=== PATIENT | male | born 1950 | race Caucasian/White ===

== ENCOUNTER 2016-07-24 12:06 | Inpatient (IN) | payer MEDICARE ==
[~2016-07-24] VITALS: Ht 172.7 cm; Wt 63.4 kg
[~2016-07-24 12:06] MED LIST: ACET325T9 PO; ACET500T68 PO; ALBU2.5V5 NEB; AMLO10TA2 PO; AMLO10TA4 PO; AMLO5TAB2 PO; ASPI81TA2 PO; BISA-42 PO; BISA5TAB4 PO; CALC-56 PO; CARV25TA2 PO; CEFAZOLIN 1GM IVPB FOR OMNI 50 ML IV PRN; CIPR250T30 PO; CLON1PAT2 TD; COLE1TAB2 PO; DEXA5DRO OD; DEXT15DR5 EACHEYE; DEXT4TAB PO; DICL2.5D OP; DOCU-27 PO; DULO30CA2 PO; DULO60CA6 PO; ENOX40DI3 SQ; FAMO20TA5 PO; FERR-26 PO; FERR325T3 PO; FOLI0.8T3 PO; FURO-68 PO; FURO20TA3 PO; GABA-586 PO; GABA600T2 PO; GABA800T2 PO; GLUC1KIT IM; HYDR-2869 PO; HYDR25TA PO; INSU100C SQ; INSU100C4 SQ; INSU100I13 SQ; INSU100I17 SQ; INSU100V31 SQ; INSU100V8 SQ; IPRA3AMP NEB; IV RINGERS,LACTATED 1000ML 1,000 ML IV SCH; LIDO700A4 TP; LIDOCAINE 1% 1 ML SYRINGE. ID PRN; LIPA1CAP12 PO; LIPA1CAP36 PO; LIPA1CAP4 PO; LISI-334 PO; LISI10TA2 PO; LMFO1TAB PO; MAGN400O4 PO; MELA3TAB PO; METO25TA4 PO; MIRT15TA3 PO; MIRT7.5T8 PO; MOXI3DRO2 RIGHTEYE; MULT-246 PO; ONDA4TAB12 PO; OXYC10TA PO; OXYC20TA34 PO; OXYC30TA64 PO; OXYC5CAP3 PO; PANT40TA5 PO; PIPE3.3710 IV; POLY15DR20 LEFTEYE; POLY15DR27 OS; POLY17PO5 PO; PRED5DRO6 RIGHTEYE; PROCHLORPERAZINE 10 MG/2 ML VIAL. IV PRN; QUET25TA5 PO; SENN-22 PO; SENN1TAB7 PO; SENN8.6T99 PO; SODI650T PO; TRAZ100T12 PO; TRAZ50TA15 PO; VIT1TABL71 PO; WARF10TA PO; WARF1TAB PO; WARF4TAB7 PO
[2016-07-24] MEDS ORDERED: HYDROMORPHONE 2 MG/ML VIAL. IV ONE (13:45)
[2016-07-24] MEDS ORDERED: HYDROMORPHONE 2 MG/ML VIAL. IV STA (15:22)
[2016-07-24] MEDS ORDERED: PROPOFOL 20 ML IV ONE ×2 (16:18→18:35)
[2016-07-24] MEDS ORDERED: ONDANSETRON PF 4 MG/2 ML VIAL. ONE ×2 (16:18→18:35)
[2016-07-24] MEDS ORDERED: LIDOCAINE 2% 100 MG/5 ML DISP.SYRIN. ONE ×2 (16:18→18:35)
[2016-07-24] MEDS ORDERED: FAMOTIDINE 20 MG/2 ML VIAL ONE ×2 (16:18→18:35)
[2016-07-24] MEDS ORDERED: DEXAMETHASONE SOD PHOS 20 MG/5 ML VIAL. ONE ×2 (16:40→18:35)
[2016-07-24] MEDS ORDERED: MORPHINE SULFATE 10 MG/ML VIAL. ONE (16:45)
[2016-07-24] MEDS ORDERED: IV RINGERS,LACTATED 1000ML 1,000 ML IV SCH (18:08)
[2016-07-24] MEDS ORDERED: ONDANSETRON PF 4 MG/2 ML VIAL. IV PRN ×2 (18:15→19:15)
[2016-07-24] MEDS ORDERED: PROCHLORPERAZINE 10 MG/2 ML VIAL. IV PRN (18:15)
[2016-07-24] MEDS ORDERED: LIDOCAINE 1% 1 ML SYRINGE. ID PRN (18:15)
[2016-07-24] MEDS ORDERED: HYDROMORPHONE 2 MG/ML VIAL. IV PRN (18:15)
[2016-07-24] MEDS ORDERED: SEVOFLURANE > 120 MINUTES. IH ONE (18:35)
[2016-07-24] MEDS ORDERED: DEXTROSE 50% 25 GM / 50ML DISP.SYRIN. IV ONE (19:02)
--- NOTE | 2016-07-24 19:03 | PDOC ---
BRIEF OPERATIVE NOTE Date: Jul 24, 2016 Pre-Op Diagnosis painful ankle hardware and talar collapse Post-Op Diagnosis same Procedure Performed removal locking screw and repositioning left hindfoot fusion nail Surgeon Bob Anesthesia Type: General Blood Loss 100cc Findings above Complications none DELFINA AARON MD Jul 24, 2016 19:03
[2016-07-24] MEDS ORDERED: ALBUTEROL SULFATE 2.5 MG/3 ML NEBU. NEB PRN (19:15)
[2016-07-24] MEDS ORDERED: DEXTROSE 50% 25 GM / 50ML DISP.SYRIN. IV PRN (19:15)
[2016-07-24] MEDS ORDERED: ONDANSETRON ODT 4 MG TAB.RAPDIS PO PRN (19:15)
[2016-07-24] MEDS ORDERED: OXYCODONE IR 5 MG TABLET. PO PRN (19:15)
[2016-07-24] MEDS ORDERED: BISACODYL 5 MG TABLET.DR. PO PRN (19:15)
[2016-07-24] MEDS ORDERED: POLYETHYLENE GLYCOL 3350 17 GM PACKET. PO PRN (19:15)
[2016-07-24] MEDS ORDERED: IPRATRPIUM/ALBUTEROL 0.5/2.5MG 3 ML NEBU. NEB PRN (19:15)
[2016-07-24] MEDS ORDERED: OXYCODONE HCL PO PRN (19:15)
[2016-07-24] MEDS ORDERED: MORPHINE SULFATE 4 MG/ML DISP.SYRIN. IV PRN (19:15)
[2016-07-24] MEDS ORDERED: HYDROCODONE/APAP 7.5/325MG TABLET. PO PRN (19:15)
[2016-07-24] MEDS: MORPHINE SULFATE 2 MG/ML DISP.SYRIN. IV PRN ×4 (19:24→23:14)
[2016-07-24 20:00] VITALS: BP 140/77
[2016-07-24] MEDS ORDERED: traZODone 100 MG TABLET. PO SCH (21:00)
[2016-07-24] MEDS ORDERED: QUEtiapine 25 MG TABLET. PO SCH (21:00)
[2016-07-24] MEDS: DEXAMETHASONE 0.1% OPHTH SOLUTION 5ML BOTTLE. OD SCH (21:00)
[2016-07-24] MEDS ORDERED: MIRTAZAPINE 15 MG TABLET PO SCH (21:00)
--- NOTE | 2016-07-24 21:11 | OP ---
DATE OF SURGERY: 07/24/2016 PREOPERATIVE DIAGNOSES: 1. Painful hardware, left ankle. 2. Collapse of talus. POSTOPERATIVE DIAGNOSES: 1. Painful hardware, left ankle. 2. Collapse of the talus. 3. No evidence of infection. PROCEDURE: Removal of calcaneal locking screw, repositioning of hindfoot nail and relocking in a dynamized fashion. SURGEON: Richy Rojas M.D. ANESTHESIA: General, endotracheal. ESTIMATED BLOOD LOSS: 100 mL. COMPLICATIONS: None. OPERATIVE INDICATIONS: The patient is a 66-year-old male that had originally gone through a fixation of the medial portion of a bimalleolar ankle fracture, was given strict nonweightbearing orders and actually against directions bore weight on his ankle, had collapse of this ankle and required an ankle fusion, which was done previously with the hindfoot nail. He has had significant difficulties, but eventually healed relatively uneventfully later and has been having pain with weightbearing and due to talar collapse, has had some prominence of the nail distally in the hindfoot. I had gone over with him his severe risks of surgery due to multiple medical problems and difficulties healing. Nevertheless, since he cannot bear weight and this is really bothering him, we talked about the possibility of repositioning the nail superiorly and keeping it relocking it for additional support due to his poor healing capability and I am worried that he would potentially have collapse, otherwise. Nevertheless, he has significant surgical risk, he understands this, but is still limited, he would like to proceed, despite the risk. DESCRIPTION OF PROCEDURE: The patient was identified, procedure verified, the patient placed in the supine position on operating table. After adequate amounts of general endotracheal anesthesia were administered, left lower extremity was prepped and draped in standard sterile fashion. A timeout was performed, the patient and procedure identified and verified. Next, an incision was made over the previous incision over the heel to attempt to remove the calcaneal locking screw. Unfortunately, despite locating the screw and trying to back it out of the nail, it would not back out despite any measures. I did remove the proximal locking screws as planned to attempt to translate the nail superiorly with an incision over the heel to superiorly translate the nail and have control of it. The only way I was able to remove the calcaneal locking screw was to tap on the inserting device and removed the screw at the same time. Eventually in this way, the screw was removed gradually by ____ and removed the rest of the way. Nail was tapped up under fluoroscopic guidance and locked in a dynamized hole using the superior locking screw the nail being superior to that area and completely flushed with the bottom of the calcaneus not prominent. Thorough irrigation carried out with normal saline solution. Closure was accomplished with nylon suture. A very sterile bulky postoperative dressing was applied. The patient was returned to recovery room in stable condition, but did have significant hyperglycemia and was going to be kept overnight for medical surgical floor admission. RICHY ROJAS MD DR: JACKIE/charles JOB#: [id number] / [id number]
[2016-07-24] MEDS ORDERED: LIPASE/PROTEAS/AMYLAS 10/34/55 CAPSULE.DR. PO PRN (21:30)
[2016-07-24] MEDS: POLYVINYL ALCOHOL 1.4% OPHTH SOLUTION 15ML BOTTLE. OU SCH (21:30)
[2016-07-24] MEDS ORDERED: INSULIN DETEMIR 300 UNITS/3 ML INSULN.PEN. SQ SCH (21:30)
[2016-07-24 21:46] LABS: INR 1.2 (0.8-1.1); PROTHROMBIN TIME PATIENT 14.4 SEC (11.7-14.0)
[2016-07-24] MEDS: HYDRALAZINE 50 MG TABLET PO SCH (21:53)
[2016-07-24] MEDS: OXYCODONE ER 15 MG TAB.ER.12H. PO SCH (21:54)
[2016-07-24] MEDS: METOPROLOL TART IMMED RELEASE 25 MG TABLET PO SCH (21:54)
[2016-07-24] MEDS: CEFAZOLIN SODIUM 1 GM in IV NORMAL SALINE 50ML 50 ML IV SCH (22:05)
[2016-07-24] MEDS ORDERED: WARFARIN 5 MG TABLET. PO ONE (23:00)
[2016-07-24 23:21] VITALS: BP_SYST 140; BP_SYST 147; BP_DIAS 67; BP_DIAS 77
[2016-07-24] MEDS: HYDROCODONE/APAP 7.5/325MG TABLET. PO PRN (23:35)
[2016-07-25 02:12] LABS: BASO % 1 % (0-3); EOS % 0 % (0-3); HEMOGLOBIN 11.6 g/dL (13.0-17.5); LYMPH # 0.3 x10^3/uL (1.0-4.8); LYMPH % 4 % (24-48); MEAN CORPUSCULAR HEMOGLOBIN 29 pg (25-35); MEAN CORPUSCULAR HGB CONC 32 g/dL (31-37); MEAN CORPUSCULAR VOLUME 89 fL (79-100); MONO % 3 % (0-9); NEUT % 93 % (31-73); PLATELET COUNT 168 x10^3/uL (140-400); RED BLOOD COUNT 4.03 x10^6/uL (4.30-5.70); RED CELL DISTRIBUTION WIDTH 17.3 % (11.5-14.5); WHITE BLOOD COUNT 7.5 x10^3/uL (4.0-11.0)
[2016-07-25 02:22] LABS: CALCIUM 8.1 mg/dL (8.5-10.1); CREATININE 1.2 mg/dL (0.7-1.3); GFR 60.8; POTASSIUM 5.1 mmol/L (3.5-5.1)
[2016-07-25 02:31] LABS: INR 1.2 (0.8-1.1); PROTHROMBIN TIME PATIENT 14.9 SEC (11.7-14.0)
[2016-07-25] MEDS: HYDROMORPHONE 2 MG/ML VIAL. IVP PRN ×2 (03:38→06:38)
[2016-07-25 03:49] VITALS: BP 153/86
[2016-07-25] MEDS: CEFAZOLIN SODIUM 1 GM in IV NORMAL SALINE 50ML 50 ML IV SCH ×2 (04:34→08:55)
[2016-07-25] MEDS: DIPHENHYDRAMINE 50 MG/ML VIAL IVP PRN ×2 (04:34→10:41)
[2016-07-25] MEDS ORDERED: MAGNESIUM HYDROXIDE 2,400 MG/30 ML ORAL.SUSP. PO PRN (06:00)
[2016-07-25 06:57] LABS: PLT ESTIMATE ADEQUATE (ADEQUATE)
[2016-07-25 07:00] VITALS: BP 166/83
[2016-07-25] MEDS ORDERED: FERROUS SULFATE 325 MG TABLET PO SCH (08:00)
[2016-07-25] MEDS ORDERED: LIPASE/PROTEAS/AMYLAS 10/34/55 CAPSULE.DR. PO SCH (08:00)
[2016-07-25] MEDS ORDERED: INSULIN ASPART 300 UNITS/3 ML INSULN.PEN SQ SCH (08:00)
[2016-07-25] MEDS: OXYCODONE ER 15 MG TAB.ER.12H. PO SCH (08:53)
[2016-07-25] MEDS: DEXAMETHASONE 0.1% OPHTH SOLUTION 5ML BOTTLE. OD SCH (08:54)
[2016-07-25] MEDS: POLYVINYL ALCOHOL 1.4% OPHTH SOLUTION 15ML BOTTLE. OU SCH (08:54)
[2016-07-25] MEDS: METOPROLOL TART IMMED RELEASE 25 MG TABLET PO SCH (08:58)
[2016-07-25 08:59] VITALS: BP 141/83
[2016-07-25] MEDS: HYDRALAZINE 50 MG TABLET PO SCH (08:59)
[2016-07-25] MEDS ORDERED: AMLODIPINE BESYLATE 5 MG TABLET PO SCH (09:00)
[2016-07-25] MEDS ORDERED: COLESTIPOL HCL 1 GM TABLET PO SCH (09:00)
[2016-07-25] MEDS ORDERED: LIDOCAINE (700MG/PATCH) PATCH. TP SCH (09:00)
[2016-07-25] MEDS ORDERED: FOLIC/VIT B COMP W-C (RENAL) TABLET. PO SCH (09:00)
[2016-07-25] MEDS ORDERED: CALCIUM CARB/VIT D3 500/200 TABLET PO SCH (09:00)
[2016-07-25] MEDS ORDERED: DULOXETINE HCL 30 MG CAPSULE.DR. PO SCH (09:00)
[2016-07-25] MEDS ORDERED: FAMOTIDINE 20 MG TABLET. PO SCH (09:00)
[2016-07-25] MEDS ORDERED: SENNOSIDES/DOCUSATE 8.6/50MG TABLET. PO SCH (09:00)
[2016-07-25] MEDS: HYDROCODONE/APAP 7.5/325MG TABLET. PO PRN (09:03)
[2016-07-25 10:09] LABS: INR 1.3 (0.8-1.1)
[2016-07-25] MEDS ORDERED: ANTI-COAG MONITOR BY PHARMACY. MC PRN (16:00)
[2016-07-25] MEDS ORDERED: BISACODYL 10 MG SUPP.RECT PR PRN (16:00)
[2016-07-25] MEDS ORDERED: WARFARIN 10 MG TABLET. PO SCH (16:00)
[2016-07-25] MEDS ORDERED: WARFARIN 1 MG TABLET. PO SCH (16:00)
--- NOTE | 2016-07-25 20:50 | DS ---
DATE OF DISCHARGE: 07/25/2016 PRIMARY DIAGNOSIS: Painful hardware of left ankle. PROCEDURE: Includes some hardware removal, repositioning of the painful left ankle nail and ____. DISPOSITION MEDICATIONS: Include complete reproduction of his previous medications at [facility] which were filled out on his medication sheet and I think I have to sign the [facility] ____ they E-mailed. DISCHARGE INSTRUCTIONS: The instructions include nonweightbearing, removal of his dressing on Saturday with soft dressings applied to the left ankle and leg. Follow up with Dr. Rojas in 10-14 days. Report ____ significant redness, drainage, fever, chills and uncontrolled pain. No physical therapy necessarily required other than for transfers to keep weight off the extremity until his incisions heal adequately. BRIEF DESCRIPTION OF HOSPITAL COURSE: The patient underwent procedure to remove calcaneal locking screw and reposition his nail in place for additional protection of his ankle fusion, was admitted overnight for medical reasons, pain control, among others, but he also had a significant hypoglycemic episode in recovery room which is now stabilized. The patient is in stable condition and was transferred back to [facility] accordingly. DELFINA ROJAS MD DR: JACKIE/charles JOB#: [id number] / [id number]
[2016-07-30] MEDS ORDERED: CLONIDINE TTS-2 PATCH TD SCH (09:00)
== END 2016-07-25 10:50 | DRG 493 ==
LOC: SURG 12:06 → 4 NORTH 19:00
PROVIDERS: ADMIT Orthopaedic Surgery; ATTEND Orthopaedic Surgery
PROC: 0SSG04Z Reposition Left Ankle Joint with Internal Fixation Device, Open Approach (ICD-10-PCS; 2016-07-24)
PROC: 0SPG04Z Removal of Internal Fixation Device from Left Ankle Joint, Open Approach (ICD-10-PCS; principal; 2016-07-24 14:05)
DX: T84.84XA Pain due to internal orthopedic prosthetic devices, implants and grafts, initial encounter (principal); I13.0 Hypertensive heart and chronic kidney disease with heart failure and stage 1 through stage 4 chronic kidney disease, or unspecified chronic kidney disease; Y83.1 Surgical operation with implant of artificial internal device as the cause of abnormal reaction of the patient, or of later complication, without mention of misadventure at the time of the procedure; F41.9 Anxiety disorder, unspecified; N18.9 Chronic kidney disease, unspecified; E11.22 Type 2 diabetes mellitus with diabetic chronic kidney disease; F17.200 Nicotine dependence, unspecified, uncomplicated; I11.0 Hypertensive heart disease with heart failure; I50.9 Heart failure, unspecified; E78.5 Hyperlipidemia, unspecified; Z86.711 Personal history of pulmonary embolism; Z86.19 Personal history of other infectious and parasitic diseases; Z90.49 Acquired absence of other specified parts of digestive tract; Z79.899 Other long term (current) drug therapy; Z88.8 Allergy status to other drugs, medicaments and biological substances; Z88.6 Allergy status to analgesic agent
CPT/HCPCS: 36415; 76000; 80048; 82947; 85007; 85027; 85610; 87324; 87641; 94250; 94760; J0690; J1100; J1170; J1200; J1815; J2270; J2405; J2704; J7042; S0028

== ENCOUNTER 2017-07-22 17:31 | Inpatient (IN) | payer MEDICARE, OTHER ==
[2017-07-22 18:38] LABS: ADD MAN DIFF? NO
[2017-07-22 18:43] LABS: INFLUENZA A PATIENT NEGATIVE (NEGATIVE); INFLUENZA B PATIENT NEGATIVE (NEGATIVE); OBC FLU VALID
[2017-07-22 18:46] LABS: BASO # 0.1 x10^3/uL (0.0-0.2); BASO % 1 % (0-3); EOS # 0.1 x10^3/uL (0.0-0.7); EOS % 1 % (0-3); HEMATOCRIT 37.5 % (39.0-53.0); HEMOGLOBIN 12.5 g/dL (13.0-17.5); LYMPH # 0.6 x10^3/uL (1.0-4.8); LYMPH % 9 % (24-48); MEAN CORPUSCULAR HEMOGLOBIN 33 pg (25-35); MEAN CORPUSCULAR HGB CONC 33 g/dL (31-37); MEAN CORPUSCULAR VOLUME 98 fL (79-100); MONO # 0.6 x10^3/uL (0.0-1.1); MONO % 9 % (0-9); NEUT # 5.5 x10^3uL (1.8-7.7); NEUT % 80 % (31-73); PLATELET COUNT 155 x10^3/uL (140-400); RED BLOOD COUNT 3.82 x10^6/uL (4.30-5.70); RED CELL DISTRIBUTION WIDTH 14.9 % (11.5-14.5); WHITE BLOOD COUNT 6.8 x10^3/uL (4.0-11.0)
[2017-07-22 18:56] LABS: ANION GAP 7 (6-14); BLOOD UREA NITROGEN 22 mg/dL (8-26); BUN/CREATININE RATIO 20 (6-20); CALCIUM 7.8 mg/dL (8.5-10.1); CARBON DIOXIDE 25 mmol/L (21-32); CHLORIDE 106 mmol/L (98-107); CREATININE 1.1 mg/dL (0.7-1.3); GLUCOSE 210 mg/dL (70-99); POTASSIUM 4.1 mmol/L (3.5-5.1); SODIUM 138 mmol/L (136-145)
[2017-07-22 19:00] LABS: NT-PRO BNP 2044 pg/mL (0-124)
[2017-07-22 19:00] LABS: ALBUMIN 2.2 g/dL (3.4-5.0); ALBUMIN/GLOBULIN RATIO 0.5 (1.0-1.7); ALK PHOS 267 U/L (46-116); ALT (SGPT) 42 U/L (16-63); AST (SGOT) 53 U/L (15-37); LIPASE 24 U/L (73-393); TOTAL BILIRUBIN 0.4 mg/dL (0.2-1.0); TOTAL PROTEIN 6.4 g/dL (6.4-8.2)
[2017-07-22] MEDS: IOHEXOL 300 MG/ML 100ML VIAL. IV (19:15)
[2017-07-22] MEDS: CONTRAST GIVEN MC (20:48)
[2017-07-22] MEDS: ACETAMINOPHEN 500 MG TABLET PO (21:06)
[2017-07-22] MEDS: MORPHINE SULFATE 4 MG/ML DISP.SYRIN. IV ×2 (21:25→23:12)
[2017-07-22 21:34] LABS: BILIRUBIN,URINE NEGATIVE (NEG); CLARITY,URINE CLEAR; COLOR,URINE YELLOW; GLUCOSE,URINE 100 mg/dL (NEG); NITRITE,URINE NEGATIVE (NEG); PH,URINE 5.5; PROTEIN,URINE >=300 mg/dL (NEG-TRACE); UROBILINOGEN,URINE 0.2 mg/dL (0.2 mg/dL)
[2017-07-22 21:40] LABS: BACTERIA,URINE 0 /HPF (0-FEW); HYALINE CASTS, URINE FEW /HPF; RBC,URINE OCC /HPF (0-2); SQUAMOUS EPITHELIAL CELL,UR OCC /LPF
[2017-07-22] MEDS ORDERED: ONDANSETRON PF 4 MG/2 ML VIAL. IV (21:45)
[2017-07-22] MEDS ORDERED: NITROGLYCERIN SUBLINGUAL 0.4 MG BOTTLE OF 25. SL (21:45)
[2017-07-22] MEDS: FUROSEMIDE 100 MG/10 ML VIAL. IVP (22:14)
[2017-07-22] MEDS ORDERED: ACETAMINOPHEN 325 MG TABLET. PO (23:15)
[2017-07-22] MEDS ORDERED: fentaNYL PF VIAL 100 MCG/2 ML VIAL IV (23:15)
[2017-07-22] MEDS ORDERED: BISACODYL 5 MG TABLET.DR. PO (23:15)
[2017-07-22] MEDS ORDERED: IPRATRPIUM/ALBUTEROL 0.5/2.5MG 3 ML NEBU. NEB (23:15)
[2017-07-22] MEDS ORDERED: ALBUTEROL SULFATE 2.5 MG/3 ML NEBU. NEB (23:15)
[2017-07-22] MEDS ORDERED: LIPASE/PROTEAS/AMYLAS 10/34/55 CAPSULE.DR. PO (23:15)
[2017-07-22] MEDS ORDERED: POLYETHYLENE GLYCOL 3350 17 GM PACKET. PO (23:15)
[2017-07-22] MEDS: QUEtiapine 25 MG TABLET. PO (23:52)
[2017-07-22] MEDS: traZODone 100 MG TABLET. PO (23:52)
[2017-07-23 01:19] LABS: POC GLUCOSE 147 mg/dL (70-99)
[2017-07-23] MEDS: MORPHINE SULFATE 4 MG/ML DISP.SYRIN. IV ×4 (03:12→16:19)
[2017-07-23 04:44] LABS: ADD MAN DIFF? NO
[2017-07-23 04:50] LABS: BASO # 0.1 x10^3/uL (0.0-0.2); BASO % 1 % (0-3); EOS # 0.1 x10^3/uL (0.0-0.7); EOS % 2 % (0-3); HEMATOCRIT 35.1 % (39.0-53.0); HEMOGLOBIN 11.7 g/dL (13.0-17.5); LYMPH # 0.8 x10^3/uL (1.0-4.8); LYMPH % 14 % (24-48); MEAN CORPUSCULAR HEMOGLOBIN 33 pg (25-35); MEAN CORPUSCULAR HGB CONC 33 g/dL (31-37); MEAN CORPUSCULAR VOLUME 99 fL (79-100); MONO # 0.5 x10^3/uL (0.0-1.1); MONO % 9 % (0-9); NEUT # 4.3 x10^3uL (1.8-7.7); NEUT % 74 % (31-73); PLATELET COUNT 128 x10^3/uL (140-400); RED BLOOD COUNT 3.54 x10^6/uL (4.30-5.70); RED CELL DISTRIBUTION WIDTH 14.7 % (11.5-14.5); WHITE BLOOD COUNT 5.8 x10^3/uL (4.0-11.0)
[2017-07-23 05:00] LABS: INR 1.2 (0.8-1.1)
[2017-07-23 05:25] LABS: ANION GAP 5 (6-14); BLOOD UREA NITROGEN 20 mg/dL (8-26); CALCIUM 7.9 mg/dL (8.5-10.1); CARBON DIOXIDE 28 mmol/L (21-32); CHLORIDE 106 mmol/L (98-107); CHOLESTEROL 146 mg/dL (0-200); CREATININE 1.1 mg/dL (0.7-1.3); GLUCOSE 128 mg/dL (70-99); HDLC 18 mg/dL (40-60); LDLC 108 mg/dL (0-100); NON-HDL CHOLESTEROL 128 mg/dL (0-129); POTASSIUM 3.7 mmol/L (3.5-5.1); SODIUM 139 mmol/L (136-145); TRIGLYCERIDES 102 mg/dL (0-150); VLDLC 20 mg/dL (0-40)
[2017-07-23 05:26] LABS: TROPONINI < 0.017 ng/mL (0.000-0.055)
[2017-07-23 05:28] LABS: CHOLESTEROL/HDL RATIO 8.1
[2017-07-23] MEDS: INSULIN ASPART 300 UNITS/3 ML INSULN.PEN SQ ×3 (08:00→16:57)
[2017-07-23 08:01] LABS: POC GLUCOSE 53 mg/dL (70-99)
[2017-07-23 08:01] LABS: POC GLUCOSE 59 mg/dL (70-99)
[2017-07-23] MEDS: DEXTROSE 50% 25 GM / 50ML DISP.SYRIN. IV (08:01)
[2017-07-23] MEDS: LIPASE/PROTEAS/AMYLAS 10/34/55 CAPSULE.DR. PO ×3 (08:04→17:09)
[2017-07-23] MEDS: DULoxetine HCL 30 MG CAPSULE.DR PO (08:07)
[2017-07-23] MEDS: FOLIC/VIT B COMP W-C (RENAL) TABLET. PO (08:08)
[2017-07-23] MEDS: CALCIUM CARB/VIT D3 500/200 TABLET. PO (08:08)
[2017-07-23] MEDS: amLODIPine BESYLATE 5 MG TABLET PO (08:08)
[2017-07-23] MEDS: METOPROLOL TART IMMED RELEASE 25 MG TABLET. PO (08:08)
[2017-07-23] MEDS: FERROUS SULFATE 325 MG TABLET. PO (08:08)
[2017-07-23] MEDS: DEXAMETHASONE 0.1% OPHTH SOLUTION 5ML BOTTLE. OD ×4 (08:09→20:38)
[2017-07-23] MEDS: POLYVINYL ALCOHOL 1.4% OPHTH SOLUTION 15ML BOTTLE. OU ×4 (08:09→20:38)
[2017-07-23] MEDS: POLYETHYLENE GLYCOL 3350 17 GM PACKET. PO (08:09)
[2017-07-23] MEDS: LIDOCAINE (700MG/PATCH) PATCH. TP (08:10)
[2017-07-23] MEDS: oxyCODONE IR 5 MG TABLET PO ×2 (08:11→20:37)
[2017-07-23 08:17] LABS: POC GLUCOSE 159 mg/dL (70-99)
[2017-07-23 10:21] LABS: TROPONINI < 0.017 ng/mL (0.000-0.055)
[2017-07-23 11:18] LABS: POC GLUCOSE 149 mg/dL (70-99)
[2017-07-23] MEDS: LEVOTHYROXINE 100 MCG TABLET PO (14:29)
[2017-07-23] MEDS: oxyCODONE/APAP 5/325 1 TAB TABLET PO (14:30)
[2017-07-23] MEDS: ANTI-COAG MONITOR BY PHARMACY. MC (14:52)
[2017-07-23] MEDS ORDERED: WARFARIN 1 MG TABLET. PO (16:00)
[2017-07-23] MEDS: COLESTIPOL HCL 1 GM TABLET PO (16:19)
[2017-07-23 16:29] LABS: POC GLUCOSE 149 mg/dL (70-99)
[2017-07-23] MEDS: RIVAROXABAN 10 MG TABLET. PO (17:09)
[2017-07-23] MEDS: MIRTAZAPINE 15 MG TABLET PO (20:37)
[2017-07-23] MEDS: traZODone 100 MG TABLET. PO (20:37)
[2017-07-23] MEDS: METOPROLOL TART IMMED RELEASE 50 MG TABLET. PO (20:38)
[2017-07-23] MEDS: QUEtiapine 25 MG TABLET. PO (20:38)
[2017-07-23] MEDS: INSULIN DETEMIR 300 UNITS/3 ML INSULN.PEN. SQ ×2 (20:45)
[2017-07-23] MEDS ORDERED: MIRTAZAPINE 15 MG TABLET PO (21:00)
[2017-07-23 21:34] LABS: POC GLUCOSE 183 mg/dL (70-99)
[2017-07-23] MEDS: hydrALAZINE 20 MG/ML VIAL. IVP (22:55)
[2017-07-23] MEDS: MORPHINE SULFATE 2 MG/ML DISP.SYRIN. IV (22:56)
[2017-07-24] MEDS: oxyCODONE IR 5 MG TABLET PO (03:24)
[2017-07-24] MEDS: hydrALAZINE 20 MG/ML VIAL. IVP ×2 (03:29→07:19)
[2017-07-24] MEDS: DEXTROSE 50% 25 GM / 50ML DISP.SYRIN. IV (07:20)
[2017-07-24 07:32] LABS: POC GLUCOSE 54 mg/dL (70-99)
[2017-07-24] MEDS: INSULIN ASPART 300 UNITS/3 ML INSULN.PEN SQ ×3 (08:00→16:55)
[2017-07-24] MEDS: METOPROLOL TART IMMED RELEASE 50 MG TABLET. PO ×2 (08:08→20:47)
[2017-07-24] MEDS: FOLIC/VIT B COMP W-C (RENAL) TABLET. PO (08:08)
[2017-07-24] MEDS: LIDOCAINE (700MG/PATCH) PATCH. TP (08:08)
[2017-07-24] MEDS: FUROSEMIDE 40 MG TABLET. PO (08:09)
[2017-07-24] MEDS: LEVOTHYROXINE 100 MCG TABLET PO (08:09)
[2017-07-24] MEDS: POTASSIUM CHLORIDE 10 MEQ TABLET.ER. PO (08:09)
[2017-07-24] MEDS: DULoxetine HCL 30 MG CAPSULE.DR PO (08:09)
[2017-07-24] MEDS: FERROUS SULFATE 325 MG TABLET. PO (08:10)
[2017-07-24] MEDS: FAMOTIDINE 20 MG TABLET. PO (08:10)
[2017-07-24] MEDS: CALCIUM CARB/VIT D3 500/200 TABLET. PO (08:10)
[2017-07-24] MEDS: LIPASE/PROTEAS/AMYLAS 10/34/55 CAPSULE.DR. PO ×3 (08:15→16:43)
[2017-07-24] MEDS: POLYVINYL ALCOHOL 1.4% OPHTH SOLUTION 15ML BOTTLE. OU ×4 (08:15→21:35)
[2017-07-24] MEDS: DEXAMETHASONE 0.1% OPHTH SOLUTION 5ML BOTTLE. OD ×4 (08:15→21:35)
[2017-07-24 08:33] LABS: POC GLUCOSE 143 mg/dL (70-99)
[2017-07-24] MEDS: POLYETHYLENE GLYCOL 3350 17 GM PACKET. PO (09:00)
[2017-07-24 09:54] LABS: ANION GAP 7 (6-14); BLOOD UREA NITROGEN 19 mg/dL (8-26); CALCIUM 8.6 mg/dL (8.5-10.1); CARBON DIOXIDE 29 mmol/L (21-32); CHLORIDE 103 mmol/L (98-107); GFR 74.8; GLUCOSE 101 mg/dL (70-99); MAGNESIUM 1.7 mg/dL (1.8-2.4); SODIUM 139 mmol/L (136-145)
[2017-07-24 10:59] LABS: POC GLUCOSE 80 mg/dL (70-99)
[2017-07-24] MEDS: MORPHINE SULFATE 2 MG/ML DISP.SYRIN. IV ×5 (11:38→21:35)
[2017-07-24] MEDS: MAGNESIUM SULFATE 2GM 50 ML IV (11:41)
[2017-07-24] MEDS: PANTOPRAZOLE 40 MG TABLET.DR. PO (13:41)
[2017-07-24 16:23] LABS: POC GLUCOSE 202 mg/dL (70-99)
[2017-07-24] MEDS: RIVAROXABAN 10 MG TABLET. PO (16:43)
[2017-07-24] MEDS: COLESTIPOL HCL 1 GM TABLET PO (16:44)
[2017-07-24 20:39] LABS: POC GLUCOSE 167 mg/dL (70-99)
[2017-07-24] MEDS: MIRTAZAPINE 15 MG TABLET PO (20:46)
[2017-07-24] MEDS: QUEtiapine 25 MG TABLET. PO (20:47)
[2017-07-24] MEDS: traZODone 100 MG TABLET. PO (20:47)
[2017-07-24] MEDS: INSULIN DETEMIR 300 UNITS/3 ML INSULN.PEN. SQ (21:44)
[2017-07-25] MEDS: MORPHINE SULFATE 2 MG/ML DISP.SYRIN. IV ×6 (02:12→19:58)
[2017-07-25] MEDS: hydrALAZINE 20 MG/ML VIAL. IVP ×2 (03:48→11:05)
[2017-07-25 07:46] LABS: POC GLUCOSE 84 mg/dL (70-99)
[2017-07-25] MEDS: INSULIN ASPART 300 UNITS/3 ML INSULN.PEN SQ ×3 (08:00→16:34)
[2017-07-25] MEDS: LIDOCAINE (700MG/PATCH) PATCH. TP (08:20)
[2017-07-25] MEDS: DEXAMETHASONE 0.1% OPHTH SOLUTION 5ML BOTTLE. OD ×4 (08:21→19:54)
[2017-07-25] MEDS: LIPASE/PROTEAS/AMYLAS 10/34/55 CAPSULE.DR. PO ×3 (08:21→16:34)
[2017-07-25] MEDS: FOLIC/VIT B COMP W-C (RENAL) TABLET. PO (08:22)
[2017-07-25] MEDS: FUROSEMIDE 40 MG TABLET. PO (08:22)
[2017-07-25] MEDS: METOPROLOL TART IMMED RELEASE 50 MG TABLET. PO ×2 (08:22→19:55)
[2017-07-25] MEDS: PANTOPRAZOLE 40 MG TABLET.DR. PO (08:22)
[2017-07-25] MEDS: LEVOTHYROXINE 100 MCG TABLET PO (08:23)
[2017-07-25] MEDS: DULoxetine HCL 30 MG CAPSULE.DR PO (08:23)
[2017-07-25] MEDS: POTASSIUM CHLORIDE 10 MEQ TABLET.ER. PO (08:23)
[2017-07-25] MEDS: FERROUS SULFATE 325 MG TABLET. PO (08:23)
[2017-07-25] MEDS: CALCIUM CARB/VIT D3 500/200 TABLET. PO (08:23)
[2017-07-25] MEDS: POLYVINYL ALCOHOL 1.4% OPHTH SOLUTION 15ML BOTTLE. OU ×4 (08:24→21:00)
[2017-07-25] MEDS: POLYETHYLENE GLYCOL 3350 17 GM PACKET. PO (08:25)
[2017-07-25 11:25] LABS: POC GLUCOSE 49 mg/dL (70-99)
[2017-07-25] MEDS: DEXTROSE 50% 25 GM / 50ML DISP.SYRIN. IV (11:33)
[2017-07-25 16:28] LABS: POC GLUCOSE 99 mg/dL (70-99)
[2017-07-25] MEDS: COLESTIPOL HCL 1 GM TABLET PO (16:33)
[2017-07-25] MEDS: RIVAROXABAN 10 MG TABLET. PO (16:34)
[2017-07-25 19:18] LABS: PROTEIN 24 HR UR 1763 mg/24 hr (30-150); UR PROTEIN 235.1 mg/dL (Not Estab.)
[2017-07-25 21:04] LABS: POC GLUCOSE 113 mg/dL (70-99)
[2017-07-25] MEDS: traZODone 100 MG TABLET. PO (22:07)
[2017-07-25] MEDS: QUEtiapine 25 MG TABLET. PO (22:07)
[2017-07-25] MEDS: MIRTAZAPINE 15 MG TABLET PO (22:07)
[2017-07-25] MEDS: INSULIN DETEMIR 300 UNITS/3 ML INSULN.PEN. SQ (22:11)
[2017-07-26] MEDS: oxyCODONE/APAP 5/325 1 TAB TABLET PO ×2 (03:35→07:48)
[2017-07-26 07:37] LABS: POC GLUCOSE 47 mg/dL (70-99)
[2017-07-26] MEDS: DEXTROSE 50% 25 GM / 50ML DISP.SYRIN. IV (07:47)
[2017-07-26] MEDS: LIPASE/PROTEAS/AMYLAS 10/34/55 CAPSULE.DR. PO ×3 (07:47→17:00)
[2017-07-26] MEDS: LIDOCAINE (700MG/PATCH) PATCH. TP (07:48)
[2017-07-26] MEDS: FOLIC/VIT B COMP W-C (RENAL) TABLET. PO (07:48)
[2017-07-26] MEDS: POLYETHYLENE GLYCOL 3350 17 GM PACKET. PO (07:48)
[2017-07-26] MEDS: DULoxetine HCL 30 MG CAPSULE.DR PO (07:48)
[2017-07-26] MEDS: FUROSEMIDE 40 MG TABLET. PO (07:49)
[2017-07-26] MEDS: FERROUS SULFATE 325 MG TABLET. PO (07:49)
[2017-07-26] MEDS: CALCIUM CARB/VIT D3 500/200 TABLET. PO (07:49)
[2017-07-26] MEDS: PANTOPRAZOLE 40 MG TABLET.DR. PO (07:49)
[2017-07-26] MEDS: METOPROLOL TART IMMED RELEASE 50 MG TABLET. PO ×2 (07:49→20:38)
[2017-07-26] MEDS: LEVOTHYROXINE 100 MCG TABLET PO (07:49)
[2017-07-26] MEDS: POTASSIUM CHLORIDE 10 MEQ TABLET.ER. PO (07:49)
[2017-07-26] MEDS: INSULIN ASPART 300 UNITS/3 ML INSULN.PEN SQ ×3 (07:55→17:00)
[2017-07-26] MEDS ORDERED: LISINOPRIL 10 MG TABLET PO (09:30)
[2017-07-26] MEDS ORDERED: guaiFENesin ORAL 200 MG/10 ML LIQUID. PO (09:45)
[2017-07-26] MEDS ORDERED: LOSARTAN POTASSIUM 50 MG TABLET. PO (10:00)
[2017-07-26] MEDS: BRIMONIDINE 0.2% OPHTH SOLUTION 5ML BOTTLE. OU ×2 (10:00→20:48)
[2017-07-26 11:12] LABS: POC GLUCOSE 190 mg/dL (70-99)
[2017-07-26] MEDS: POLYVINYL ALCOHOL 1.4% OPHTH SOLUTION 15ML BOTTLE. OU ×4 (11:34→20:48)
[2017-07-26] MEDS: CHOLECALCIFEROL (VITAMIN D3) 5,000 UNIT CAPSULE PO (11:35)
[2017-07-26] MEDS: DEXAMETHASONE 0.1% OPHTH SOLUTION 5ML BOTTLE. OD ×4 (11:35→20:48)
[2017-07-26] MEDS: LACTOBACILLUS RHAMNOSUS GG 1 CAPSULE. PO ×2 (11:35→20:35)
[2017-07-26] MEDS: hydrALAZINE 20 MG/ML VIAL. IVP (11:35)
[2017-07-26] MEDS ORDERED: MAGNESIUM SULFATE 2GM 50 ML IV (12:15)
[2017-07-26] MEDS: MORPHINE SULFATE 2 MG/ML DISP.SYRIN. IV ×3 (12:40→20:45)
[2017-07-26] MEDS: SPIRONOLACTONE 25 MG TABLET PO ×2 (15:00→20:37)
[2017-07-26 16:54] LABS: POC GLUCOSE 146 mg/dL (70-99)
[2017-07-26] MEDS: COLESTIPOL HCL 1 GM TABLET PO (16:57)
[2017-07-26] MEDS: RIVAROXABAN 10 MG TABLET. PO (17:00)
[2017-07-26 18:16] LABS: % SAT IRON 63 % (15-34); IRON,SERUM 104 ug/dL (65-175)
[2017-07-26] MEDS: ANTI-COAG MONITOR BY PHARMACY. MC (18:28)
[2017-07-26 18:29] LABS: FERRITIN 281 ng/mL (26-388)
[2017-07-26] MEDS: traZODone 50 MG TABLET. PO (20:36)
[2017-07-26] MEDS: QUEtiapine 25 MG TABLET. PO (20:37)
[2017-07-26] MEDS: MIRTAZAPINE 15 MG TABLET PO (20:37)
[2017-07-26] MEDS: traZODone 100 MG TABLET. PO (20:49)
[2017-07-26 21:16] LABS: POC GLUCOSE 151 mg/dL (70-99)
[2017-07-27] MEDS: MORPHINE SULFATE 2 MG/ML DISP.SYRIN. IV ×4 (05:06→21:36)
[2017-07-27 06:15] LABS: CREAT CLEAR 24 56 mL/min (97-137); CREATININE UR 24HR 802 mg/24 hr (1000-2000); TOTAL URINE CREATININE 106.9 mg/dL (Not Estab.); eGFR AFRICAN-AMER 90 (>59); eGFR NON AFRICAN-AMER 78 (>59)
[2017-07-27 07:02] LABS: HEMOGLOBIN 11.4 g/dL (13.0-17.5)
[2017-07-27 07:20] LABS: ANION GAP 5 (6-14); BLOOD UREA NITROGEN 24 mg/dL (8-26); CALCIUM 8.1 mg/dL (8.5-10.1); CARBON DIOXIDE 29 mmol/L (21-32); CHLORIDE 99 mmol/L (98-107); CREATININE 1.4 mg/dL (0.7-1.3); GFR 50.7; GLUCOSE 217 mg/dL (70-99); PHOSPHORUS 3.3 mg/dL (2.6-4.7); POTASSIUM 4.6 mmol/L (3.5-5.1); SODIUM 133 mmol/L (136-145)
[2017-07-27 07:36] LABS: POC GLUCOSE 193 mg/dL (70-99)
[2017-07-27 07:38] LABS: MAGNESIUM 1.9 mg/dL (1.8-2.4)
[2017-07-27] MEDS: PANTOPRAZOLE 40 MG TABLET.DR. PO (08:52)
[2017-07-27] MEDS: LEVOTHYROXINE 100 MCG TABLET PO (08:53)
[2017-07-27] MEDS: LIPASE/PROTEAS/AMYLAS 10/34/55 CAPSULE.DR. PO ×3 (08:53→16:48)
[2017-07-27] MEDS: DEXAMETHASONE 0.1% OPHTH SOLUTION 5ML BOTTLE. OD ×4 (08:54→21:31)
[2017-07-27] MEDS: BRIMONIDINE 0.2% OPHTH SOLUTION 5ML BOTTLE. OU ×2 (08:55→21:31)
[2017-07-27] MEDS: SPIRONOLACTONE 25 MG TABLET PO ×2 (08:56→21:35)
[2017-07-27] MEDS: LOSARTAN POTASSIUM 50 MG TABLET. PO (08:57)
[2017-07-27] MEDS: DULoxetine HCL 30 MG CAPSULE.DR PO (08:58)
[2017-07-27] MEDS: LACTOBACILLUS RHAMNOSUS GG 1 CAPSULE. PO ×2 (08:58→21:34)
[2017-07-27] MEDS: FERROUS SULFATE 325 MG TABLET. PO (08:59)
[2017-07-27] MEDS: POLYVINYL ALCOHOL 1.4% OPHTH SOLUTION 15ML BOTTLE. OU ×4 (09:00→21:31)
[2017-07-27] MEDS ORDERED: LISINOPRIL 10 MG TABLET PO (09:00)
[2017-07-27] MEDS: POLYETHYLENE GLYCOL 3350 17 GM PACKET. PO ×2 (09:00→16:00)
[2017-07-27] MEDS: FUROSEMIDE 40 MG TABLET. PO (09:00)
[2017-07-27] MEDS: METOPROLOL TART IMMED RELEASE 50 MG TABLET. PO ×2 (09:01→21:35)
[2017-07-27] MEDS: CALCIUM CARB/VIT D3 500/200 TABLET. PO (09:01)
[2017-07-27] MEDS: FOLIC/VIT B COMP W-C (RENAL) TABLET. PO (09:01)
[2017-07-27] MEDS: cloNIDine TTS-3 1 PATCH PATCH.TDWK TD (09:02)
[2017-07-27] MEDS: CHOLECALCIFEROL (VITAMIN D3) 5,000 UNIT CAPSULE PO (09:02)
[2017-07-27] MEDS: LIDOCAINE (700MG/PATCH) PATCH. TP (09:03)
[2017-07-27] MEDS: INSULIN ASPART 300 UNITS/3 ML INSULN.PEN SQ ×3 (09:14→17:22)
[2017-07-27 11:32] LABS: POC GLUCOSE 176 mg/dL (70-99)
[2017-07-27] MEDS: oxyCODONE IR 5 MG TABLET PO ×2 (12:02→18:05)
[2017-07-27] MEDS: COLESTIPOL HCL 1 GM TABLET PO (16:44)
[2017-07-27] MEDS: PSYLLIUM HUSK (SUGAR FREE) 1 PKT PACKET PO (16:44)
[2017-07-27] MEDS: RIVAROXABAN 10 MG TABLET. PO (16:47)
[2017-07-27 17:23] LABS: POC GLUCOSE 161 mg/dL (70-99)
[2017-07-27 20:39] LABS: POC GLUCOSE 274 mg/dL (70-99)
[2017-07-27] MEDS: traZODone 50 MG TABLET. PO (21:33)
[2017-07-27] MEDS: QUEtiapine 25 MG TABLET. PO (21:34)
[2017-07-27] MEDS: MIRTAZAPINE 15 MG TABLET PO (21:35)
[2017-07-28] MEDS: oxyCODONE IR 5 MG TABLET PO ×2 (01:18→20:48)
[2017-07-28] MEDS: MORPHINE SULFATE 2 MG/ML DISP.SYRIN. IV ×7 (01:19→20:42)
[2017-07-28 06:41] LABS: ALBUMIN 1.9 g/dL (3.4-5.0); ANION GAP 7 (6-14); BLOOD UREA NITROGEN 33 mg/dL (8-26); CALCIUM 8.3 mg/dL (8.5-10.1); CARBON DIOXIDE 27 mmol/L (21-32); CHLORIDE 101 mmol/L (98-107); CREATININE 1.8 mg/dL (0.7-1.3); GFR 37.9; GLUCOSE 286 mg/dL (70-99); PHOSPHORUS 3.9 mg/dL (2.6-4.7); POTASSIUM 4.4 mmol/L (3.5-5.1); SODIUM 135 mmol/L (136-145)
[2017-07-28 06:43] LABS: MAGNESIUM 2.1 mg/dL (1.8-2.4)
[2017-07-28 07:29] LABS: POC GLUCOSE 206 mg/dL (70-99)
[2017-07-28] MEDS: CHOLECALCIFEROL (VITAMIN D3) 5,000 UNIT CAPSULE PO (08:38)
[2017-07-28] MEDS: LIPASE/PROTEAS/AMYLAS 10/34/55 CAPSULE.DR. PO ×3 (08:38→17:22)
[2017-07-28] MEDS: PANTOPRAZOLE 40 MG TABLET.DR. PO (08:39)
[2017-07-28] MEDS: FOLIC/VIT B COMP W-C (RENAL) TABLET. PO (08:39)
[2017-07-28] MEDS: LEVOTHYROXINE 100 MCG TABLET PO (08:39)
[2017-07-28] MEDS: LACTOBACILLUS RHAMNOSUS GG 1 CAPSULE. PO ×2 (08:39→20:45)
[2017-07-28] MEDS: CALCIUM CARB/VIT D3 500/200 TABLET. PO (08:39)
[2017-07-28] MEDS: DULoxetine HCL 30 MG CAPSULE.DR PO (08:39)
[2017-07-28] MEDS: SPIRONOLACTONE 25 MG TABLET PO ×2 (08:39→20:47)
[2017-07-28] MEDS: FERROUS SULFATE 325 MG TABLET. PO (08:39)
[2017-07-28] MEDS: BRIMONIDINE 0.2% OPHTH SOLUTION 5ML BOTTLE. OU ×2 (08:40→20:41)
[2017-07-28] MEDS: METOPROLOL TART IMMED RELEASE 50 MG TABLET. PO ×2 (08:40→20:47)
[2017-07-28] MEDS: POLYVINYL ALCOHOL 1.4% OPHTH SOLUTION 15ML BOTTLE. OU ×4 (08:40→20:41)
[2017-07-28] MEDS: DEXAMETHASONE 0.1% OPHTH SOLUTION 5ML BOTTLE. OD ×4 (08:40→20:41)
[2017-07-28] MEDS: PSYLLIUM HUSK (SUGAR FREE) 1 PKT PACKET PO (08:41)
[2017-07-28] MEDS: POLYETHYLENE GLYCOL 3350 17 GM PACKET. PO ×2 (08:41)
[2017-07-28] MEDS: INSULIN ASPART 300 UNITS/3 ML INSULN.PEN SQ ×3 (08:51→17:27)
[2017-07-28] MEDS: LIDOCAINE (700MG/PATCH) PATCH. TP (08:51)
[2017-07-28 11:04] LABS: POC GLUCOSE 157 mg/dL (70-99)
[2017-07-28] MEDS: COLESTIPOL HCL 1 GM TABLET PO (15:26)
[2017-07-28] MEDS: RIVAROXABAN 10 MG TABLET. PO (17:22)
[2017-07-28 19:26] LABS: POC GLUCOSE 216 mg/dL (70-99)
[2017-07-28] MEDS: MIRTAZAPINE 15 MG TABLET PO (20:45)
[2017-07-28] MEDS: traZODone 50 MG TABLET. PO (20:45)
[2017-07-28] MEDS: QUEtiapine 25 MG TABLET. PO (20:45)
[2017-07-28 21:28] LABS: POC GLUCOSE 249 mg/dL (70-99)
[2017-07-29 05:20] LABS: ANION GAP 9 (6-14); BLOOD UREA NITROGEN 34 mg/dL (8-26); CALCIUM 8.5 mg/dL (8.5-10.1); CARBON DIOXIDE 27 mmol/L (21-32); CHLORIDE 102 mmol/L (98-107); CREATININE 1.6 mg/dL (0.7-1.3); GFR 43.5; GLUCOSE 261 mg/dL (70-99); MAGNESIUM 2.1 mg/dL (1.8-2.4); PHOSPHORUS 3.4 mg/dL (2.6-4.7); POTASSIUM 4.6 mmol/L (3.5-5.1); SODIUM 138 mmol/L (136-145)
[2017-07-29 08:12] LABS: POC GLUCOSE 267 mg/dL (70-99)
[2017-07-29] MEDS: PSYLLIUM HUSK (SUGAR FREE) 1 PKT PACKET PO (08:32)
[2017-07-29] MEDS: LIPASE/PROTEAS/AMYLAS 10/34/55 CAPSULE.DR. PO ×3 (08:32→17:38)
[2017-07-29] MEDS: FERROUS SULFATE 325 MG TABLET. PO (08:33)
[2017-07-29] MEDS: FOLIC/VIT B COMP W-C (RENAL) TABLET. PO (08:33)
[2017-07-29] MEDS: oxyCODONE IR 5 MG TABLET PO ×2 (08:33→20:51)
[2017-07-29] MEDS: DULoxetine HCL 30 MG CAPSULE.DR PO (08:33)
[2017-07-29] MEDS: ONDANSETRON ODT 4 MG TAB.RAPDIS. PO (08:33)
[2017-07-29] MEDS: PANTOPRAZOLE 40 MG TABLET.DR. PO (08:34)
[2017-07-29] MEDS: CALCIUM CARB/VIT D3 500/200 TABLET. PO (08:34)
[2017-07-29] MEDS: LACTOBACILLUS RHAMNOSUS GG 1 CAPSULE. PO ×2 (08:34→20:55)
[2017-07-29] MEDS: LEVOTHYROXINE 100 MCG TABLET PO (08:34)
[2017-07-29] MEDS: METOPROLOL TART IMMED RELEASE 50 MG TABLET. PO ×2 (08:34→21:00)
[2017-07-29] MEDS: SPIRONOLACTONE 25 MG TABLET PO ×2 (08:34→20:55)
[2017-07-29] MEDS: MORPHINE SULFATE 2 MG/ML DISP.SYRIN. IV ×4 (08:35→20:52)
[2017-07-29] MEDS: BRIMONIDINE 0.2% OPHTH SOLUTION 5ML BOTTLE. OU ×3 (08:36→17:39)
[2017-07-29] MEDS: POLYVINYL ALCOHOL 1.4% OPHTH SOLUTION 15ML BOTTLE. OU ×4 (08:36→20:52)
[2017-07-29] MEDS: DEXAMETHASONE 0.1% OPHTH SOLUTION 5ML BOTTLE. OD ×4 (08:36→20:52)
[2017-07-29] MEDS: LIDOCAINE (700MG/PATCH) PATCH. TP (08:37)
[2017-07-29] MEDS: CHOLECALCIFEROL (VITAMIN D3) 5,000 UNIT CAPSULE PO (08:37)
[2017-07-29] MEDS: POLYETHYLENE GLYCOL 3350 17 GM PACKET. PO (08:43)
[2017-07-29] MEDS: INSULIN ASPART 300 UNITS/3 ML INSULN.PEN SQ ×3 (08:49→17:46)
[2017-07-29] MEDS ORDERED: cloNIDine TTS-2 1 PATCH PATCH TD (09:00)
[2017-07-29 11:28] LABS: POC GLUCOSE 237 mg/dL (70-99)
[2017-07-29] MEDS: IV NORMAL SALINE 1000ML BAG 1,000 ML IV ×2 (11:54→20:56)
[2017-07-29] MEDS: oxyCODONE/APAP 5/325 1 TAB TABLET PO ×2 (13:41→17:39)
[2017-07-29] MEDS: FUROSEMIDE 40 MG/4 ML VIAL. IVP (13:42)
[2017-07-29] MEDS: COLESTIPOL HCL 1 GM TABLET PO (15:48)
[2017-07-29 16:34] LABS: POC GLUCOSE 229 mg/dL (70-99)
[2017-07-29] MEDS: RIVAROXABAN 10 MG TABLET. PO (17:38)
[2017-07-29] MEDS: ANTI-COAG MONITOR BY PHARMACY. MC (18:07)
[2017-07-29 20:23] LABS: POC GLUCOSE 257 mg/dL (70-99)
[2017-07-29] MEDS: traZODone 50 MG TABLET. PO (20:55)
[2017-07-29] MEDS: MIRTAZAPINE 15 MG TABLET PO (20:55)
[2017-07-29] MEDS: QUEtiapine 25 MG TABLET. PO (20:55)
[2017-07-30] MEDS: oxyCODONE/APAP 5/325 1 TAB TABLET PO ×2 (02:19→08:22)
[2017-07-30] MEDS: MORPHINE SULFATE 2 MG/ML DISP.SYRIN. IV ×4 (02:20→11:44)
[2017-07-30] MEDS: oxyCODONE IR 5 MG TABLET PO ×2 (05:22→11:44)
[2017-07-30 06:10] LABS: ANION GAP 5 (6-14); BLOOD UREA NITROGEN 38 mg/dL (8-26); CALCIUM 7.9 mg/dL (8.5-10.1); CARBON DIOXIDE 29 mmol/L (21-32); CHLORIDE 104 mmol/L (98-107); CREATININE 1.6 mg/dL (0.7-1.3); GFR 43.5; GLUCOSE 224 mg/dL (70-99); MAGNESIUM 2.1 mg/dL (1.8-2.4); PHOSPHORUS 3.6 mg/dL (2.6-4.7); POTASSIUM 4.8 mmol/L (3.5-5.1); SODIUM 138 mmol/L (136-145)
[2017-07-30 07:28] LABS: POC GLUCOSE 199 mg/dL (70-99)
[2017-07-30] MEDS: POLYETHYLENE GLYCOL 3350 17 GM PACKET. PO (08:15)
[2017-07-30] MEDS: PSYLLIUM HUSK (SUGAR FREE) 1 PKT PACKET PO (08:15)
[2017-07-30] MEDS: METOPROLOL TART IMMED RELEASE 50 MG TABLET. PO (08:16)
[2017-07-30] MEDS: LIDOCAINE (700MG/PATCH) PATCH. TP (08:16)
[2017-07-30] MEDS: LEVOTHYROXINE 100 MCG TABLET PO (08:17)
[2017-07-30] MEDS: CALCIUM CARB/VIT D3 500/200 TABLET. PO (08:17)
[2017-07-30] MEDS: SPIRONOLACTONE 25 MG TABLET PO (08:17)
[2017-07-30] MEDS: DULoxetine HCL 30 MG CAPSULE.DR PO (08:18)
[2017-07-30] MEDS: LIPASE/PROTEAS/AMYLAS 10/34/55 CAPSULE.DR. PO ×2 (08:18→11:44)
[2017-07-30] MEDS: CHOLECALCIFEROL (VITAMIN D3) 5,000 UNIT CAPSULE PO (08:18)
[2017-07-30] MEDS: LACTOBACILLUS RHAMNOSUS GG 1 CAPSULE. PO (08:18)
[2017-07-30] MEDS: PANTOPRAZOLE 40 MG TABLET.DR. PO (08:18)
[2017-07-30] MEDS: FOLIC/VIT B COMP W-C (RENAL) TABLET. PO (08:18)
[2017-07-30] MEDS: POLYVINYL ALCOHOL 1.4% OPHTH SOLUTION 15ML BOTTLE. OU ×2 (08:19→12:46)
[2017-07-30] MEDS: DEXAMETHASONE 0.1% OPHTH SOLUTION 5ML BOTTLE. OD ×2 (08:19→12:47)
[2017-07-30] MEDS: BRIMONIDINE 0.2% OPHTH SOLUTION 5ML BOTTLE. OU (08:22)
[2017-07-30] MEDS: INSULIN ASPART 300 UNITS/3 ML INSULN.PEN SQ ×2 (08:37→11:50)
[2017-07-30 11:05] LABS: POC GLUCOSE 307 mg/dL (70-99)
== END 2017-07-30 14:00 | DRG 291 ==
LOC: ER 17:31 → 5 SOUTH 21:26
DX: I13.0 Hypertensive heart and chronic kidney disease with heart failure and stage 1 through stage 4 chronic kidney disease, or unspecified chronic kidney disease (principal); E43 Unspecified severe protein-calorie malnutrition; N17.0 Acute kidney failure with tubular necrosis; I50.33 Acute on chronic diastolic (congestive) heart failure; D69.59 Other secondary thrombocytopenia; D69.6 Thrombocytopenia, unspecified; E10.22 Type 1 diabetes mellitus with diabetic chronic kidney disease; E10.42 Type 1 diabetes mellitus with diabetic polyneuropathy; F11.20 Opioid dependence, uncomplicated; K76.6 Portal hypertension; N13.2 Hydronephrosis with renal and ureteral calculous obstruction; R60.1 Generalized edema; E10.649 Type 1 diabetes mellitus with hypoglycemia without coma; Z68.22 Body mass index [BMI] 22.0-22.9, adult; B19.20 Unspecified viral hepatitis C without hepatic coma; D63.8 Anemia in other chronic diseases classified elsewhere; E03.9 Hypothyroidism, unspecified; E77.8 Other disorders of glycoprotein metabolism; E78.00 Pure hypercholesterolemia, unspecified; E78.5 Hyperlipidemia, unspecified; F32.9 Major depressive disorder, single episode, unspecified; F41.9 Anxiety disorder, unspecified; G89.4 Chronic pain syndrome; I27.20 Pulmonary hypertension, unspecified; I48.0 Paroxysmal atrial fibrillation; K21.9 Gastro-esophageal reflux disease without esophagitis; N18.9 Chronic kidney disease, unspecified; Z66 Do not resuscitate; Z79.01 Long term (current) use of anticoagulants; Z79.4 Long term (current) use of insulin; Z83.3 Family history of diabetes mellitus; Z86.718 Personal history of other venous thrombosis and embolism; Z87.442 Personal history of urinary calculi; Z87.891 Personal history of nicotine dependence; Z90.411 Acquired partial absence of pancreas; F10.10 Alcohol abuse, uncomplicated; M19.90 Unspecified osteoarthritis, unspecified site; Z88.5 Allergy status to narcotic agent; Z90.49 Acquired absence of other specified parts of digestive tract; F19.10 Other psychoactive substance abuse, uncomplicated
CPT/HCPCS: 36415; 71045; 74018; 74176; 76770; 78708; 80048; 80053; 80061; 80069; 81001; 82575; 82728; 82962; 83540; 83550; 83690; 83735; 83880; 84156; 84484; 85018; 85025; 85610; 87804; 87804-59; 93005; 93306; 93976; 94760; 96374; 96375; 97110-GP; 97116-GP; 97162-GP; 97165-GO; 99285; 99285-25; A9562; J0360; J1815; J1940; J2270; J7030; J7042; J7060; Q0162

== ENCOUNTER 2017-08-04 20:20 | Inpatient (IN) | payer MEDICARE, OTHER ==
[2017-08-04 21:21] LABS: BILIRUBIN,URINE NEGATIVE (NEG); CLARITY,URINE CLEAR; COLOR,URINE YELLOW; GLUCOSE,URINE 500 mg/dL (NEG); NITRITE,URINE NEGATIVE (NEG); PROTEIN,URINE 100 mg/dL (NEG-TRACE); UROBILINOGEN,URINE 0.2 mg/dL (0.2 mg/dL)
[2017-08-04 21:28] LABS: BACTERIA,URINE 0 /HPF (0-FEW); RBC,URINE RARE /HPF (0-2); SQUAMOUS EPITHELIAL CELL,UR OCC /LPF; WBC,URINE RARE /HPF (0-4)
[2017-08-04 21:46] LABS: ADD MAN DIFF? NO
[2017-08-04 21:48] LABS: BASO # 0.1 x10^3/uL (0.0-0.2); BASO % 1 % (0-3); EOS # 0.1 x10^3/uL (0.0-0.7); EOS % 1 % (0-3); HEMATOCRIT 35.8 % (39.0-53.0); HEMOGLOBIN 12.1 g/dL (13.0-17.5); LYMPH # 0.7 x10^3/uL (1.0-4.8); LYMPH % 8 % (24-48); MEAN CORPUSCULAR HEMOGLOBIN 33 pg (25-35); MEAN CORPUSCULAR HGB CONC 34 g/dL (31-37); MEAN CORPUSCULAR VOLUME 98 fL (79-100); MONO # 0.7 x10^3/uL (0.0-1.1); MONO % 9 % (0-9); NEUT # 6.8 x10^3uL (1.8-7.7); NEUT % 81 % (31-73); PLATELET COUNT 134 x10^3/uL (140-400); RED BLOOD COUNT 3.65 x10^6/uL (4.30-5.70); WHITE BLOOD COUNT 8.3 x10^3/uL (4.0-11.0)
[2017-08-04 21:57] LABS: ANION GAP 9 (6-14); BLOOD UREA NITROGEN 20 mg/dL (8-26); BUN/CREATININE RATIO 17 (6-20); CARBON DIOXIDE 23 mmol/L (21-32); CHLORIDE 100 mmol/L (98-107); CREATININE 1.2 mg/dL (0.7-1.3); GFR 60.6; GLUCOSE 212 mg/dL (70-99); POTASSIUM 4.9 mmol/L (3.5-5.1); SODIUM 132 mmol/L (136-145)
[2017-08-04 22:02] LABS: ALBUMIN 2.3 g/dL (3.4-5.0); ALBUMIN/GLOBULIN RATIO 0.5 (1.0-1.7); ALK PHOS 219 U/L (46-116); ALT (SGPT) 42 U/L (16-63); AST (SGOT) 50 U/L (15-37); LIPASE 29 U/L (73-393); TOTAL BILIRUBIN 0.4 mg/dL (0.2-1.0); TOTAL PROTEIN 6.5 g/dL (6.4-8.2)
[2017-08-04] MEDS ORDERED: CONTRAST GIVEN MC (22:15)
[2017-08-04] MEDS: ONDANSETRON PF 4 MG/2 ML VIAL. IV (22:51)
[2017-08-04] MEDS: MORPHINE SULFATE 10 MG/ML VIAL. IV (22:52)
[2017-08-04] MEDS: IOHEXOL 240 MG/ML 50ML VIAL. PO (23:26)
[2017-08-05] MEDS: MORPHINE SULFATE 10 MG/ML VIAL. IV (01:45)
[2017-08-05] MEDS ORDERED: ONDANSETRON PF 4 MG/2 ML VIAL. IV (01:45)
[2017-08-05] MEDS: HYOSCYAMINE 0.125 MG TAB.RAPDIS PO (01:45)
[2017-08-05] MEDS: MORPHINE SULFATE 4 MG/ML DISP.SYRIN. IV ×4 (03:46→21:42)
[2017-08-05] MEDS ORDERED: LIPASE/PROTEAS/AMYLAS 10/34/55 CAPSULE.DR. PO ×3 (05:30→12:00)
[2017-08-05] MEDS ORDERED: ONDANSETRON ODT 4 MG TAB.RAPDIS. PO (05:30)
[2017-08-05] MEDS ORDERED: ACETAMINOPHEN 325 MG TABLET. PO (05:30)
[2017-08-05] MEDS ORDERED: guaiFENesin DM 200MG/20MG 10 ML SYRUP PO (05:30)
[2017-08-05] MEDS: LEVOTHYROXINE 100 MCG TABLET PO (06:18)
[2017-08-05] MEDS: oxyCODONE IR 5 MG TABLET PO (06:22)
[2017-08-05] MEDS ORDERED: INSULIN ASPART 300 UNITS/3 ML INSULN.PEN SQ (07:30)
[2017-08-05] MEDS ORDERED: FAMOTIDINE 20 MG TABLET. PO (09:00)
[2017-08-05] MEDS ORDERED: LACTOBACILLUS RHAMNOSUS GG 1 CAPSULE. PO ×2 (09:00)
[2017-08-05] MEDS: POLYETHYLENE GLYCOL 3350 17 GM PACKET. PO (09:00)
[2017-08-05] MEDS: BRIMONIDINE 0.2% OPHTH SOLUTION 5ML BOTTLE. OU ×2 (09:18→20:35)
[2017-08-05 11:48] LABS: POC GLUCOSE 150 mg/dL (70-99)
[2017-08-05 11:49] LABS: POC GLUCOSE 174 mg/dL (70-99)
[2017-08-05] MEDS: PANTOPRAZOLE 40 MG TABLET.DR. PO (12:44)
[2017-08-05] MEDS: DULoxetine HCL 30 MG CAPSULE.DR PO (12:44)
[2017-08-05] MEDS: LACTOBACILLUS RHAMNOSUS GG 1 CAPSULE. PO ×2 (12:45→19:52)
[2017-08-05] MEDS ORDERED: DEXTROSE 50% 25 GM / 50ML DISP.SYRIN. IV (12:45)
[2017-08-05] MEDS: LOSARTAN POTASSIUM 50 MG TABLET. PO (12:45)
[2017-08-05] MEDS: FOLIC/VIT B COMP W-C (RENAL) TABLET. PO (12:45)
[2017-08-05] MEDS: FERROUS SULFATE 325 MG TABLET. PO (12:46)
[2017-08-05] MEDS: CHOLECALCIFEROL (VITAMIN D3) 5,000 UNIT CAPSULE PO (12:46)
[2017-08-05] MEDS: LIPASE/PROTEAS/AMYLAS 10/34/55 CAPSULE.DR. PO ×2 (12:46→16:30)
[2017-08-05] MEDS: oxyCODONE ER 15 MG TAB.ER.12H PO ×2 (12:47→19:56)
[2017-08-05] MEDS: CALCIUM CARB/VIT D3 500/200 TABLET. PO (12:48)
[2017-08-05] MEDS: METOPROLOL TART IMMED RELEASE 50 MG TABLET. PO ×2 (12:48→19:55)
[2017-08-05 16:15] LABS: MRSA BY PCR Negative (Negative)
[2017-08-05] MEDS: RIVAROXABAN 10 MG TABLET. PO (16:30)
[2017-08-05] MEDS: COLESTIPOL HCL 1 GM TABLET PO (16:30)
[2017-08-05] MEDS: INSULIN ASPART 300 UNITS/3 ML INSULN.PEN SQ (16:35)
[2017-08-05 16:38] LABS: POC GLUCOSE 238 mg/dL (70-99)
[2017-08-05] MEDS: traMADol 50 MG TABLET PO (19:53)
[2017-08-05] MEDS: MIRTAZAPINE 15 MG TABLET PO (19:54)
[2017-08-05 20:45] LABS: POC GLUCOSE 292 mg/dL (70-99)
[2017-08-06] MEDS: oxyCODONE IR 5 MG TABLET PO ×2 (01:58→16:45)
[2017-08-06 04:22] LABS: ADD MAN DIFF? NO
[2017-08-06 04:29] LABS: BASO % 1 % (0-3); EOS # 0.1 x10^3/uL (0.0-0.7); EOS % 2 % (0-3); HEMATOCRIT 32.6 % (39.0-53.0); HEMOGLOBIN 10.9 g/dL (13.0-17.5); LYMPH # 0.6 x10^3/uL (1.0-4.8); LYMPH % 9 % (24-48); MEAN CORPUSCULAR HEMOGLOBIN 33 pg (25-35); MEAN CORPUSCULAR HGB CONC 33 g/dL (31-37); MEAN CORPUSCULAR VOLUME 100 fL (79-100); MONO # 0.7 x10^3/uL (0.0-1.1); MONO % 11 % (0-9); NEUT # 4.9 x10^3uL (1.8-7.7); NEUT % 77 % (31-73); PLATELET COUNT 119 x10^3/uL (140-400); RED BLOOD COUNT 3.26 x10^6/uL (4.30-5.70); RED CELL DISTRIBUTION WIDTH 14.3 % (11.5-14.5); WHITE BLOOD COUNT 6.3 x10^3/uL (4.0-11.0)
[2017-08-06 04:54] LABS: ANION GAP 4 (6-14); BLOOD UREA NITROGEN 20 mg/dL (8-26); CALCIUM 8.2 mg/dL (8.5-10.1); CARBON DIOXIDE 28 mmol/L (21-32); CHLORIDE 102 mmol/L (98-107); CREATININE 1.3 mg/dL (0.7-1.3); GFR 55.2; GLUCOSE 312 mg/dL (70-99); POTASSIUM 5.3 mmol/L (3.5-5.1); SODIUM 134 mmol/L (136-145)
[2017-08-06] MEDS: LEVOTHYROXINE 100 MCG TABLET PO (06:00)
[2017-08-06 07:08] LABS: POC GLUCOSE 300 mg/dL (70-99)
[2017-08-06] MEDS: INSULIN ASPART 300 UNITS/3 ML INSULN.PEN SQ ×3 (08:36→16:54)
[2017-08-06] MEDS ORDERED: LACTOBACILLUS RHAMNOSUS GG 1 CAPSULE. PO ×2 (09:00)
[2017-08-06] MEDS: POLYETHYLENE GLYCOL 3350 17 GM PACKET. PO (09:00)
[2017-08-06] MEDS: BRIMONIDINE 0.2% OPHTH SOLUTION 5ML BOTTLE. OU ×2 (09:22→20:24)
[2017-08-06] MEDS: IV RINGERS,LACTATED 1000ML 1,000 ML IV (10:44)
[2017-08-06] MEDS ORDERED: LIDOCAINE 1% PF 2 ML VIAL. ID (10:45)
[2017-08-06] MEDS ORDERED: MIDAZOLAM HCL/PF 2 MG/2 ML VIAL. IV (10:45)
[2017-08-06] MEDS ORDERED: fentaNYL PF VIAL 100 MCG/2 ML VIAL IV ×2 (10:45)
[2017-08-06] MEDS ORDERED: PROPOFOL 20 ML IV (11:12)
[2017-08-06] MEDS: LIPASE/PROTEAS/AMYLAS 10/34/55 CAPSULE.DR. PO ×3 (12:00→16:50)
[2017-08-06] MEDS: DULoxetine HCL 30 MG CAPSULE.DR PO (13:28)
[2017-08-06] MEDS: LACTOBACILLUS RHAMNOSUS GG 1 CAPSULE. PO ×2 (13:28→20:21)
[2017-08-06] MEDS: PANTOPRAZOLE 40 MG TABLET.DR. PO (13:28)
[2017-08-06] MEDS: CHOLECALCIFEROL (VITAMIN D3) 5,000 UNIT CAPSULE PO (13:29)
[2017-08-06] MEDS: METOPROLOL TART IMMED RELEASE 50 MG TABLET. PO ×2 (13:29→20:25)
[2017-08-06] MEDS: CALCIUM CARB/VIT D3 500/200 TABLET. PO (13:30)
[2017-08-06] MEDS: LOSARTAN POTASSIUM 50 MG TABLET. PO (13:30)
[2017-08-06] MEDS: FOLIC/VIT B COMP W-C (RENAL) TABLET. PO (13:30)
[2017-08-06] MEDS: oxyCODONE ER 15 MG TAB.ER.12H PO ×2 (13:30→20:24)
[2017-08-06] MEDS: FERROUS SULFATE 325 MG TABLET. PO (13:31)
[2017-08-06 14:41] LABS: POC GLUCOSE 199 mg/dL (70-99)
[2017-08-06] MEDS: COLESTIPOL HCL 1 GM TABLET PO (16:34)
[2017-08-06 16:37] LABS: POC GLUCOSE 275 mg/dL (70-99)
[2017-08-06] MEDS: RIVAROXABAN 10 MG TABLET. PO (16:50)
[2017-08-06 17:38] LABS: SEDIMENTATION RATE 37 (0-15)
[2017-08-06] MEDS: diphenhydrAMINE HCL 25 MG CAPSULE PO (20:22)
[2017-08-06] MEDS: MIRTAZAPINE 15 MG TABLET PO (20:22)
[2017-08-06] MEDS: traMADol 50 MG TABLET PO (20:23)
[2017-08-06 21:03] LABS: POC GLUCOSE 69 mg/dL (70-99)
[2017-08-07] MEDS: diphenhydrAMINE HCL 25 MG CAPSULE PO ×3 (04:21→20:50)
[2017-08-07 05:38] LABS: ADD MAN DIFF? NO
[2017-08-07 06:00] LABS: BASO % 1 % (0-3); EOS # 0.2 x10^3/uL (0.0-0.7); EOS % 2 % (0-3); HEMATOCRIT 35.1 % (39.0-53.0); HEMOGLOBIN 11.6 g/dL (13.0-17.5); LYMPH # 0.8 x10^3/uL (1.0-4.8); LYMPH % 10 % (24-48); MEAN CORPUSCULAR HEMOGLOBIN 33 pg (25-35); MEAN CORPUSCULAR HGB CONC 33 g/dL (31-37); MEAN CORPUSCULAR VOLUME 100 fL (79-100); MONO # 0.8 x10^3/uL (0.0-1.1); MONO % 10 % (0-9); NEUT % 78 % (31-73); PLATELET COUNT 139 x10^3/uL (140-400); RED CELL DISTRIBUTION WIDTH 14.2 % (11.5-14.5); WHITE BLOOD COUNT 7.8 x10^3/uL (4.0-11.0)
[2017-08-07] MEDS: LEVOTHYROXINE 100 MCG TABLET PO (06:07)
[2017-08-07 06:37] LABS: ALBUMIN 2.2 g/dL (3.4-5.0); ALBUMIN/GLOBULIN RATIO 0.5 (1.0-1.7); ALK PHOS 198 U/L (46-116); ALT (SGPT) 41 U/L (16-63); ANION GAP 4 (6-14); AST (SGOT) 46 U/L (15-37); BLOOD UREA NITROGEN 24 mg/dL (8-26); BUN/CREATININE RATIO 18 (6-20); CALCIUM 8.6 mg/dL (8.5-10.1); CARBON DIOXIDE 29 mmol/L (21-32); CHLORIDE 102 mmol/L (98-107); CREATININE 1.3 mg/dL (0.7-1.3); GFR 55.2; GLUCOSE 166 mg/dL (70-99); POTASSIUM 5.7 mmol/L (3.5-5.1); SODIUM 135 mmol/L (136-145); TOTAL BILIRUBIN 0.3 mg/dL (0.2-1.0); TOTAL PROTEIN 6.3 g/dL (6.4-8.2)
[2017-08-07 07:02] LABS: POC GLUCOSE 178 mg/dL (70-99)
[2017-08-07] MEDS ORDERED: LACTOBACILLUS RHAMNOSUS GG 1 CAPSULE. PO ×2 (09:00)
[2017-08-07] MEDS: oxyCODONE ER 15 MG TAB.ER.12H PO ×2 (09:11→20:44)
[2017-08-07] MEDS: CHOLECALCIFEROL (VITAMIN D3) 5,000 UNIT CAPSULE PO (09:11)
[2017-08-07] MEDS: FOLIC/VIT B COMP W-C (RENAL) TABLET. PO (09:11)
[2017-08-07] MEDS: METOPROLOL TART IMMED RELEASE 50 MG TABLET. PO ×2 (09:12→20:42)
[2017-08-07] MEDS: FERROUS SULFATE 325 MG TABLET. PO (09:12)
[2017-08-07] MEDS: DULoxetine HCL 30 MG CAPSULE.DR PO (09:12)
[2017-08-07] MEDS: PANTOPRAZOLE 40 MG TABLET.DR. PO (09:12)
[2017-08-07] MEDS: POLYETHYLENE GLYCOL 3350 17 GM PACKET. PO (09:13)
[2017-08-07] MEDS: LIPASE/PROTEAS/AMYLAS 10/34/55 CAPSULE.DR. PO ×3 (09:13→16:55)
[2017-08-07] MEDS: LOSARTAN POTASSIUM 50 MG TABLET. PO (09:13)
[2017-08-07] MEDS: CALCIUM CARB/VIT D3 500/200 TABLET. PO (09:13)
[2017-08-07] MEDS: LACTOBACILLUS RHAMNOSUS GG 1 CAPSULE. PO ×2 (09:13→20:44)
[2017-08-07] MEDS: BRIMONIDINE 0.2% OPHTH SOLUTION 5ML BOTTLE. OU ×2 (09:19→20:41)
[2017-08-07] MEDS: INSULIN ASPART 300 UNITS/3 ML INSULN.PEN SQ ×3 (09:25→17:00)
[2017-08-07 11:24] LABS: POC GLUCOSE 178 mg/dL (70-99)
[2017-08-07] MEDS: oxyCODONE IR 5 MG TABLET PO ×2 (12:42→20:43)
[2017-08-07 13:53] LABS: BLOOD UREA NITROGEN 28 mg/dL (8-26); CALCIUM 8.6 mg/dL (8.5-10.1); CARBON DIOXIDE 27 mmol/L (21-32); CHLORIDE 99 mmol/L (98-107); CREATININE 1.4 mg/dL (0.7-1.3); GFR 50.7; GLUCOSE 180 mg/dL (70-99); POTASSIUM 5.2 mmol/L (3.5-5.1); SODIUM 124 mmol/L (136-145)
[2017-08-07 16:48] LABS: POC GLUCOSE 202 mg/dL (70-99)
[2017-08-07] MEDS: METOCLOPRAMIDE ORAL SOLN 10 MG/10 ML SOLUTION. PO ×2 (16:55→20:41)
[2017-08-07] MEDS: COLESTIPOL HCL 1 GM TABLET PO (16:55)
[2017-08-07] MEDS: RIVAROXABAN 10 MG TABLET. PO (16:55)
[2017-08-07] MEDS: traMADol 50 MG TABLET PO (20:42)
[2017-08-07] MEDS: MIRTAZAPINE 15 MG TABLET PO (20:43)
[2017-08-07 21:28] LABS: POC GLUCOSE 117 mg/dL (70-99)
[2017-08-08] MEDS: oxyCODONE IR 5 MG TABLET PO (02:47)
[2017-08-08] MEDS: diphenhydrAMINE HCL 25 MG CAPSULE PO ×2 (02:47→10:22)
[2017-08-08] MEDS: LEVOTHYROXINE 100 MCG TABLET PO (06:00)
[2017-08-08 07:23] LABS: POC GLUCOSE 160 mg/dL (70-99)
[2017-08-08] MEDS: FOLIC/VIT B COMP W-C (RENAL) TABLET. PO (09:00)
[2017-08-08] MEDS ORDERED: LACTOBACILLUS RHAMNOSUS GG 1 CAPSULE. PO (09:00)
[2017-08-08] MEDS: POLYETHYLENE GLYCOL 3350 17 GM PACKET. PO (09:00)
[2017-08-08] MEDS: METOCLOPRAMIDE ORAL SOLN 10 MG/10 ML SOLUTION. PO ×2 (09:10→11:41)
[2017-08-08] MEDS: guaiFENesin ORAL 200 MG/10 ML LIQUID. PO (09:10)
[2017-08-08] MEDS: CHOLECALCIFEROL (VITAMIN D3) 5,000 UNIT CAPSULE PO (09:11)
[2017-08-08] MEDS: BRIMONIDINE 0.2% OPHTH SOLUTION 5ML BOTTLE. OU (09:11)
[2017-08-08] MEDS: LOSARTAN POTASSIUM 50 MG TABLET. PO (09:12)
[2017-08-08] MEDS: LIPASE/PROTEAS/AMYLAS 10/34/55 CAPSULE.DR. PO ×2 (09:12→11:41)
[2017-08-08] MEDS: CALCIUM CARB/VIT D3 500/200 TABLET. PO (09:12)
[2017-08-08] MEDS: METOPROLOL TART IMMED RELEASE 50 MG TABLET. PO (09:12)
[2017-08-08] MEDS: PANTOPRAZOLE 40 MG TABLET.DR. PO (09:13)
[2017-08-08] MEDS: DULoxetine HCL 30 MG CAPSULE.DR PO (09:13)
[2017-08-08] MEDS: oxyCODONE ER 15 MG TAB.ER.12H PO (09:13)
[2017-08-08] MEDS: INSULIN ASPART 300 UNITS/3 ML INSULN.PEN SQ ×2 (09:23→11:47)
[2017-08-08] MEDS: FERROUS SULFATE 325 MG TABLET. PO (10:22)
[2017-08-08] MEDS: LACTOBACILLUS RHAMNOSUS GG 1 CAPSULE. PO (10:22)
[2017-08-08 12:06] LABS: POC GLUCOSE 278 mg/dL (70-99)
[2017-08-08] MEDS: ANTI-COAG MONITOR BY PHARMACY. MC ×2 (13:22→13:28)
[2017-08-10] MEDS ORDERED: cloNIDine TTS-3 1 PATCH PATCH.TDWK TD (09:00)
== END 2017-08-08 16:00 | disposition home or self-care (01) | DRG 391 ==
LOC: 5 SOUTH 08-05 01:34 → ER 20:20
PROC: 0DJ08ZZ Inspection of Upper Intestinal Tract, Via Natural or Artificial Opening Endoscopic (ICD-10-PCS; principal; 2017-08-06 11:24)
DX: K52.9 Noninfective gastroenteritis and colitis, unspecified (principal); E43 Unspecified severe protein-calorie malnutrition; J84.9 Interstitial pulmonary disease, unspecified; J90 Pleural effusion, not elsewhere classified; J44.9 Chronic obstructive pulmonary disease, unspecified; K31.84 Gastroparesis; R18.8 Other ascites; K86.1 Other chronic pancreatitis; F11.20 Opioid dependence, uncomplicated; K74.60 Unspecified cirrhosis of liver; F32.9 Major depressive disorder, single episode, unspecified; E03.9 Hypothyroidism, unspecified; F41.9 Anxiety disorder, unspecified; K21.0 Gastro-esophageal reflux disease with esophagitis; E78.00 Pure hypercholesterolemia, unspecified; E78.5 Hyperlipidemia, unspecified; E87.5 Hyperkalemia; F12.90 Cannabis use, unspecified, uncomplicated; G89.4 Chronic pain syndrome; I10 Essential (primary) hypertension; I73.9 Peripheral vascular disease, unspecified; Z79.01 Long term (current) use of anticoagulants; Z83.3 Family history of diabetes mellitus; Z86.718 Personal history of other venous thrombosis and embolism; Z87.891 Personal history of nicotine dependence; Z90.411 Acquired partial absence of pancreas; Z90.49 Acquired absence of other specified parts of digestive tract
CPT/HCPCS: 36415; 71250; 74176; 80048; 80053; 81001; 82533; 82962; 83690; 85025; 85651; 87641; 96374; 96375; 96376; 99285; 99285-25; J1815; J2270; J2405; J2704; J7120; J8597; Q0163; Q9966